=== PATIENT | female | born 1990 | race Caucasian/White ===

== ENCOUNTER 2024-08-13 12:03 | Outpatient (CLI) | payer OTHER, SELFPAY ==
--- NOTE | 2024-08-13 12:15 | CRLHL7_ITS ---
For Patients: As a result of the Century Cures Act, medical imaging exams and procedure reports are released immediately into your electronic medical record. You may view this report before your referring provider. If you have questions, please contact your health care provider. INDICATION: First trimester scan, establish dates. COMPARISON: None. TECHNIQUE: Real-time jimenez-scale imaging of the pelvis was performed. FINDINGS/IMPRESSION: Sonographic imaging demonstrates a single living intrauterine gestation. The embryo demonstrates a regular cardiac rate measuring 161 beats per minute. The embryo`s crown-rump length measurement of 1.9 cm corresponds to a gestational age of 8 weeks 3 days with a sonographic due date of 03/22/2025. There is a normal-appearing yolk sac. There are no gross abnormalities noted within the embryo at this early state of development. The gestational sac has a normal appearance. There is a 3.2 x 0.8 x 1.8 cm left-sided perigestational hemorrhage. The amount of fluid within the sac appears appropriate for gestational age. The cervix is closed. The myometrium appears normal. The ovaries are of normal size. Corpus luteal cyst right ovary. There are no suspicious fluid collections noted in the cul-de-sac. Dictated by Lionel Hernandes MD @ 08/13/2024 1:16:43 PM (Electronically Signed)
== END 2024-08-13 12:04 | disposition home or self-care (01) ==
LOC: US 12:03
PROVIDERS: Visit Provider Midwife
DX: Z34.91 Encounter for supervision of normal pregnancy, unspecified, first trimester (principal); O34.81 Maternal care for other abnormalities of pelvic organs, first trimester; N83.11 Corpus luteum cyst of right ovary; Z3A.08 8 weeks gestation of pregnancy
CPT/HCPCS: 76817

== ENCOUNTER 2024-08-13 13:32 | Outpatient (CLI) | payer OTHER, SELFPAY | END 2024-08-13 13:33 | disposition home or self-care (01) | PROVIDERS: Visit Provider Advanced Practice Midwife | DX: Z34.91 Encounter for supervision of normal pregnancy, unspecified, first trimester (principal); Z3A.08 8 weeks gestation of pregnancy | CPT/HCPCS: 83020; 83021; 85660; 86592; 86703; 86704; 86706; 86762; 86787; 86803; 86850; 86900; 86901; 87086; 87340 ==

== ENCOUNTER 2024-11-10 10:56 | Outpatient (CLI) | payer OTHER, SELFPAY | END 2024-11-10 10:57 | disposition home or self-care (01) | LOC: US 10:57 | PROVIDERS: Visit Provider Advanced Practice Midwife | DX: O09.522 Supervision of elderly multigravida, second trimester (principal); Z3A.20 20 weeks gestation of pregnancy | CPT/HCPCS: 76811 ==

== ENCOUNTER 2024-12-31 13:04 | Outpatient (CLI) | payer OTHER, SELFPAY ==
--- NOTE | 2024-12-31 13:00 | CRLHL7_ITS ---
For Patients: As a result of the Cures Act, medical imaging exams and procedure reports are released immediately into your electronic medical record. You may view this report before your referring provider. If you have questions, please contact your health care provider. OB ULTRASOUND DEONDRE by LMP: 03/25/2025. GA: 28 w, 0 d. Single. Comparison: 11/10/2024, 08/13/2024. INDICATION: Marginal cord insertion. TECHNIQUE: Real time grayscale imaging of the fetus was performed. Transabdominal. CERVIX: Visualized. Measurement: 4.0. POSITIONING: Vertex. AMNIOTIC FLUID: 3.9 cm. SDP (N: greater than 2 x 1 cm) PLACENTA: Technique: Transabdominal. PLACENTA POSITION: Posterior. DOPPLER: heart rate: 147 bpm. BIOMETRY: BPD: 7.3 cm. 29 w, 1 d, 74.7 percent. HC: 26.7 cm. 29 w, 0 d, 52.9 percent. AC: 26.7 cm. 30 w, 5 d, >97 percent. FL: 5.6 cm. 29 w, 4 d, 77.8 percent. FL/AC ratio: 21.05 percent. HC/AC ratio: 1.0. EFW: 1504 g. Weight: 3 lbs, 5 oz. age by this US: 29 w, 4 d. DEONDRE by this US: 03/14/2025. Percentile by DEONDRE: >97 percent. IMPRESSION: 1. Sonographic gestational age 29 weeks 4 days and sonographic due date 03/14/2025. Sonographic age 11 days ahead of clinical age. 2. Estimated weight greater than the 97th percentile. Abdominal circumference greater than the 97th percentile. Lionel Hernandes M.D. Diagnostic Radiologist [email or web address] PORSHA/ye belcher/Dictated by: Lionel Hernandes MD @ 12/31/2024 2:29:00 PM (Electronically Signed)
== END 2024-12-31 13:05 | disposition home or self-care (01) ==
LOC: US 13:04
PROVIDERS: Visit Provider Advanced Practice Midwife
DX: O43.193 Other malformation of placenta, third trimester (principal); Z3A.28 28 weeks gestation of pregnancy
CPT/HCPCS: 76816; 86592

== ENCOUNTER 2025-01-06 07:44 | Outpatient (CLI) | payer OTHER, SELFPAY | END 2025-01-06 07:45 | disposition home or self-care (01) | LOC: NFLDREF 01-13 22:09 | PROVIDERS: Visit Provider Advanced Practice Midwife | DX: R73.09 Other abnormal glucose (principal) | CPT/HCPCS: 82951; 82952 ==

== ENCOUNTER 2025-02-11 12:55 | Outpatient (CLI) | payer OTHER, SELFPAY ==
--- NOTE | 2025-02-11 13:00 | CRLHL7_ITS ---
For Patients: As a result of the Century Cures Act, medical imaging exams and procedure reports are released immediately into your electronic medical record. You may view this report before your referring provider. If you have questions, please contact your health care provider. OB ULTRASOUND DEONDRE by LMP/US: 03/25/2025. GA: 34 w, 0 d. Single. Comparison: Ultrasounds 12/31 and 11/10. INDICATION: Marginal cord insertion. TECHNIQUE: Real time jimenez scale imaging of the fetus was performed. Transabdominal. CERVIX: Not visualized. POSITIONING: Breech. AMNIOTIC FLUID: 4.1 cm. SDP (N: greater than 2 x 1 cm) PLACENTA: Technique: Transabdominal. PLACENTA POSITION: Posterior. DOPPLER: heart rate: 124 bpm. BIOMETRY: BPD: 8.8 cm. 35 w, 3 d, 86th percent. HC: 32.2 cm. 36 w, 2 d, 74th percent. AC: 31.4 cm. 35 w, 2 d, 87th percent. FL: 6.4 cm. 33 w, 1 d, 20th percent. FL/AC ratio: 20.45 percent. HC/AC ratio: 1.02. EFW: 2535 g. Weight: 5 lbs, 9 oz. age by this US: 35 w, 0 d. DEONDRE by this US: 03/18/2025. Percentile by DEONDRE: 70th percent. IMPRESSION: 1. Sonographic gestational age 35 weeks 0 days and sonographic due date 03/18/2025. Sonographic age is 1 week ahead of the clinical age. 2. Estimated weight 78th percentile. Abdominal circumference 87th percentile. Lionel Hernandes M.D. Diagnostic Radiologist [email or web address] PORSHA/davidson DW/Dictated by: Lionel Hernandes MD @ 02/12/2025 9:16:00 PM (Electronically Signed)
--- OUTSIDE RECORDS SUMMARY | 2025-02-12 00:52 | XMS_ITS | Clinical Summary ---
Author Organization [facility] Address [address] [place] [id number] Care Team Providers Care Operations Analyst Name Role Phone Alena Fernandez MD Primary Care Provide r Allergies Active Allergy Reactions Criticality Noted Date Comments Penicillins Rash,Hives High 05/09/2007 Medications sertraline (ZOLOFT) 50 mg tablet Take 1 tablet (50 mg total) by mouth daily. 90 Tablet 3 2 Active ketoconazole 2% shampoo (NIZORAL) 2 % shampoo Apply topically to damp skin, lather, leave on 5 minutes, and rinse 3 (three) times a week. 120 mL 11 10/22/2022 4:30 PM DIRECTOR OF VALUATION 2 Active buPROPion (WELLBUTRIN XL) 150 mg Extended-Release tablet Take 1 tablet (150 mg total) by mouth every morning. 90 Tablet 11/15/2022 1:41 PM CDT 3 Active sertraline (ZOLOFT) 100 mg tablet Take 1 tablet (100 mg total) by mouth daily. 90 Tablet 11/15/2022 1:41 PM CDT 3 Active ondansetron (ZOFRAN) 4 mg tablet Take 1 Tablet (4 mg) by mouth 3 times daily if needed for nausea or vomiting for up to 7 days. 20 Tablet 3 Active loperamide (IMODIUM) 2 mg capsule Take 1 capsule (2 mg total) by mouth 4 (four) times a day as needed for diarrhea. 30 Capsule 3 Active ondansetron (ZOFRAN ODT) 4 mg disintegrating tabletIndications: Nausea Place 1 Tablet (4 mg) on the tongue every 8 hours if needed for Nausea/Vomiti ng. 20 Tablet 3 Active Amphetamine-Dextro amphetamine (ADDERALL) 15 mg tablet TAKE 1 TABLET BY MOUTH ONCE DAILY NEEDED IN THE AFTERNOON 3 Active Adderall XR 15 mg Extended-Release capsule Take 15 mg by mouth once daily. 3 Active ondansetron (ZOFRAN ODT) 4 mg disintegrating tabletIndications: Nausea Place 1 Tablet (4 mg) on the tongue every 8 hours if needed for Nausea/Vomiti ng. 15 Tablet 3 Active Active Problems Problem Noted Date Diagnosed Date Vaginal delivery 04/10/2021 Encounter for supervision of normal , unspecified, unspecified trimester 09/15/2020 Overview (04/09/2021): G 2 P 1, x1 after induction of labor for gestational diabetes uncontrolled DEONDRE: April 28, 2021 by LMP and FTU FOB: Allen Rubella immune, Rh a positive anatomy scan: normal female Nest Packet given on: 12-12 OGTT: 183 Hb at 28 weeks: 13.2 Influenza on: Tdap on: 02/06/21 GBS: COVID Testing: PP contraception plans: Presentation 03/26/21: cephalic on BSUS Issues: 1. Gestational diabetes--diet controlled 2. History of depression anxiety 3. Subchorionic hematoma 4. Size>Dates 03/26/2021. Bedside growth US 91st %ile. Official growth US ordered. Vaginal delivery 10/16/2019 Gestational diabetes mellitus (GDM) 09/03/2019 Encounter for supervision of normal first , unspecified trimester 03/27/2019 Overview (10/16/2019): G 1 P 0, GDM on glyburide /FOB: Allen Rubella immune, Rh A positive anatomy scan: normal female OGTT: failed 3hr GTT Hb: 12.9 GBS: Tdap on: 08-13-2019 Influenza on: 07-05-2019 PP contraception plans: Issues: Gestational DM on glyburide Asthma Cardiac surgery PDA closure, echo in 2012 H/O HSV, valtrex prophylaxis at 36 weeks. Devan Olsen M.D. 09/15/19 Moderate persistent asthma with acute exacerbati on 10/04/2010 Overview (10/16/2019): Overview: Asthma, Unspecified Migraine headache 10/04/2010 Immunizations Immunization Administration Dates Next Due Hepatitis B (Peds) 09/29/2001,06/08/2001, 001 Hepatitis B, Unspecified 09/29/2001,06/08/2001,0 05/11/2001 Human Papilloma Virus Vaccine 02/01/2008, 008,08/06/2007 Influenza Virus, Unspecified 07/05/2019,07/15/20 18,06/14/2011 Influenza, IIV4 05/24/2020,06/02/2014 MMR 05/11/2001 Meningococcal Vaccine (Menactra) 08/06/2007 Meningococcal, Unspecified 08/06/2007 Pneumococcal Poly,23-Valent (Pneumovax) 08/06/2007 Pneumococcal conj 13-Valent (Prevnar 13) 08/06/2007 Td (Age >=7 Years) 11/24/2002 Td, Preservative Free (age >= 7 Years) 3 Tdap 02/06/2021, 9,11/10/2012,11/24 Social History Tobacco Use Types Packs/Day Years Used Date Smoking Tobacco: Former Cigarettes Smokeless Tobacco: Never Tobacco Cessation:Counseling Given: Not Answered Alcohol Use Standard Drinks/Week Comments Not Currently 0 (1 standard drink = 0.6 oz pur e alcohol) PHQ-2 Answer Date Recorded PHQ-2 Score 0 09/08/2019 Social Connections Answer Date Recorded Frequency of Communication with Friends and Fami ly Not on file 08/25/2021 Financial Resource Strain Answer Date R ecorded Difficulty of Paying Living Expenses Not on file 08/25/2021 Difficulty of Paying Living Expenses Not on file 08/25/2021 Utilities Answer Date Recorded Do you have trouble paying f or utilities (for example, heat, electricity, water, phone)? 1 08/02/2023 Comments No Sex and Gender Information Value Date Recorded Sex Assigned at Not on file Legal Sex Female 6:59 AM DIRECTOR OF VALUATION Gender Identity Not on file Sexual Orientation Not on file Obstetrics History Para Term AB IAB SAB Ectopic Multiple Livin g Live Births 2 2 2 0 1 1 Date Outcome GA Total Labor Labor/2nd/3rd Weight Sex Type Anes PTL Tamie A1 A5 Name Clin 2019 Term 38w 1d 1h 00m/0h 10m 3.58 kg (7 lb 14.3 oz) F Vag Epidur al 8 9 FELST EAD,B G TIANNASABRINA mancia Complications:None Delivery Location:[facility]) 2020 Term 37w 2d 10h 46m 10h 26m/0h 17m/0h 03m 3.31 kg (7 lb 4.8 oz) F Vag-S pont Epidur al Livin g 9 9 FELST EAD,B G TIANNA mancia, Taz Santana MD Complications:None Delivery Location:Hospital ( [facility]) Last Filed Vital Signs Vital Sign Reading Time Taken Comments Blood Pressure 139/95 08/14/2023 7:40 PM DIRECTOR OF VALUATION Pulse 112 08/14/2023 7:40 PM DIRECTOR OF VALUATION Temperature 37.2 C (98.9 F) 08/14/2023 7:40 PM DIRECTOR OF VALUATION Respiratory Rate 18 08/14/2023 7:40 PM DIRECTOR OF VALUATION Oxygen Saturation 97% 08/14/2023 7:40 PM DIRECTOR OF VALUATION Inhaled Oxygen Concentration - - Weight 81.6 kg (180 lb) 08/14/2023 7:39 PM DIRECTOR OF VALUATION Height 165.1 cm (5' 5) 08/14/2023 7:39 PM DIRECTOR OF VALUATION Body Mass Index 29.95 08/14/2023 7:39 PM DIRECTOR OF VALUATION Plan of Treatment Health Maintenance Due Date Last Done Comments BMI (ht and wt on same day) for age 18+ 2007 Hepatitis C screening for ag e 18-79 2007 Pap test for age 21-65 2010 Depression screening for age 12+ 09/08/2020 09/08/19 20 COVID-19 vaccine series ( season) 2024 Influenza Vaccine (Season Ended) 2025 05/24/2020, 07/05/2019, 07/15/2018, Additional history exists Tetanus booster 02/06/2031 02/06/2021, 07/26, 11/10/2012, Additional history exists Pneumococcal series for age 6-49 (3 of 3 - PCV20 or PCV21) 2039 08/06/2007, 08/06/2007 Hepatitis B series for 19+ Completed 09/29, 09/29/2001, 06/08/2001, Additional history exists HIV for age 15-65 Completed 09/15/2020 Tdap Completed 02/06/2021, 07/26, 11/10/2012, Additional history exists Procedures Procedure Name Priority Date/Time Associated Diagnosis Comments HIV EXTERNAL Routine 09/15/2020 from Last 3 Months or Most Recently Relevant to Health Maintenance Results * HIV EXTERNAL (09/15/2020) EXTERNAL HIV Negative [facility] Blood BLOOD SPECIMEN / Unknown us Devan Olsen MD LABORATORY Final Result [facility] [address] [place] [address], from Last 3 Months or Most Recently Relevant to Health Maintenance Insurance [address] [place] [id number] [facility] [place] [id number] Advance Directives * Full Code (Latest Code Status on File) Date Activated Date Inactivated Comments 2021 9:06 PM 04/10/2021 8:45 PM Question Answer Comments Code Status Discussion: Discussed * Full Code Date Activated Date Inactivated Comments 03/31/2021 11:49 AM 03/31/2021 7:48 PM Question Answer Comments Code Status Discussion: Discussed * Full Code Date Activated Date Inactivated Comments 10/15/2019 5:35 PM 10/18/2019 3:47 PM Question Answer Comments Code Status Discussion: Discussed Care Teams Operations Analyst Relationship Specialty Start Date End Date Alena Fernandez MD [address] [place] [address] PCP - General Family Practice 09/28/18
== END 2025-02-11 12:56 | disposition home or self-care (01) ==
LOC: US 12:55
PROVIDERS: Visit Provider Advanced Practice Midwife
DX: O43.193 Other malformation of placenta, third trimester (principal); O36.63X0 Maternal care for excessive fetal growth, third trimester, not applicable or unspecified; Z3A.34 34 weeks gestation of pregnancy
CPT/HCPCS: 76816

== ENCOUNTER 2025-02-24 12:54 | Outpatient (CLI) | payer OTHER, SELFPAY ==
--- NOTE | 2025-02-24 13:00 | CRLHL7_ITS ---
For Patients: As a result of the Century Cures Act, medical imaging exams and procedure reports are released immediately into your electronic medical record. You may view this report before your referring provider. If you have questions, please contact your health care provider. INDICATION: Maternal gestational diabetes TECHNIQUE: Ultrasound OB pelvis transabdominal. Real-time jimenez-scale imaging of the fetus was performed with color Doppler and spectral Doppler analysis of the umbilical artery without stress testing. COMPARISON: 02/11/2025 FINDINGS: Sonographic imaging demonstrates a single living intrauterine gestation. Fetus demonstrates a regular cardiac rate of 159 beats per minute. Fetus has a cephalic orientation. The placenta lies fundal. Amniotic fluid volume appears normal with a MVP of 4.4 cm. breathing movements, motion, and tone were all observed. IMPRESSION: Single viable intrauterine with a biophysical profile 04/01. Dictated by Jose L Goode MD @ 02/24/2025 1:34:00 PM (Electronically Signed)
== END 2025-02-24 12:55 | disposition home or self-care (01) ==
LOC: US 12:54
PROVIDERS: Visit Provider Advanced Practice Midwife
DX: O24.410 Gestational diabetes mellitus in pregnancy, diet controlled (principal)
CPT/HCPCS: 76819; 87081; 87653

== ENCOUNTER 2025-02-26 23:07 | Outpatient (CLI) | payer OTHER, MEDICAID, SELFPAY ==
[2025-02-26 23:37] VITALS: BP 119/79; PULSE 82
[2025-02-26 23:38] VITALS: RESP 16; TEMP 36.8
--- NOTE | 2025-02-27 07:19 | PC.OBNST ---
NST Note NST Note Start: 02/26/25 23:15 Freq: ONCE Status: Discharge Protocol: Document 02/27/25 06:30 JIMMIE (Rec: 02/27/25 07:19 JIMMIE No Response) NST Note 3 Para (# of births) 2 EDC 03/25/25 Gestational Age In 36 Weeks & 2 Days Weeks & Days High Risk Factors Diabetes - Gestational Insulin,Advanced Maternal Age Patient Presented Contractions/cramping with Complaint(s) of Reactive Yes Appropriate for Yes Gestational Age ROMAIN Benton, ROMAINC Date 02/27/25 Reactive Yes Appropriate for Yes Gestational Age ROMAIN Dalton, RN Date 02/27/25 OB NST charge Yes Complete NST Note Yes via Write Note The provider's electronic signature indicates the NST is reactive/appropriate for gestational age. *Note to provider: If an addendum is required, open the patient's chart and click on the note under the Nurse/Allied Health tab.
== END 2025-02-27 06:48 | disposition home or self-care (01) ==
LOC: OB OUT 23:08 → OB 23:08
PROVIDERS: Visit Provider Obstetrics & Gynecology
DX: O47.03 False labor before 37 completed weeks of gestation, third trimester (principal); O24.419 Gestational diabetes mellitus in pregnancy, unspecified control; Z3A.36 36 weeks gestation of pregnancy
CPT/HCPCS: 59025; G0463; A9270; J2270

== ENCOUNTER 2025-03-02 10:40 | Outpatient (CLI) | payer OTHER, MEDICAID, SELFPAY ==
--- NOTE | 2025-03-02 10:45 | CRLHL7_ITS ---
For Patients: As a result of the Century Cures Act, medical imaging exams and procedure reports are released immediately into your electronic medical record. You may view this report before your referring provider. If you have questions, please contact your health care provider. OB ULTRASOUND BIOPHYSICAL PROFILE TRANSABDOMINAL DEONDRE by LMP: 03/25/2025. GA: 36 w, 5 d. Single. COMPARISON: 02/24/2025, 02/11/2025, 12/31/2024. INDICATION: GDMA2. TECHNIQUE: Real time jimenez scale imaging of the fetus was performed. Transabdominal imaging performed. CERVIX: Not visualized. POSITIONING: Transverse right. AMNIOTIC FLUID: 6.6 cm SDP (N: greater than 2 x 1 cm) BIOPHYSICAL PROFILE: Gross body movements: 2. tone: 2. Respiratory activity: 2. Amniotic fluid: 2. SDP (N: greater than 2 x 1 cm). Total score: 8. PLACENTA: Technique: Transabdominal. PLACENTA POSITION: Fundal. DOPPLER: heart rate: 139 bpm. IMPRESSION: Normal biophysical profile 04/01. Lionel Hernandes M.D. Diagnostic Radiologist [email or web address] SP/Dictated by: Lionel Hernandes MD @ 03/02/2025 11:55:00 AM (Electronically Signed)
== END 2025-03-02 10:41 | disposition home or self-care (01) ==
LOC: US 10:40
PROVIDERS: Visit Provider Advanced Practice Midwife
DX: O47.03 False labor before 37 completed weeks of gestation, third trimester (principal); Z3A.36 36 weeks gestation of pregnancy; O32.0XX0 Maternal care for unstable lie, not applicable or unspecified
CPT/HCPCS: 76819

== ENCOUNTER 2025-03-02 11:50 | Outpatient (CLI) | payer OTHER, MEDICAID, SELFPAY ==
[2025-03-02 12:16] VITALS: BP 116/81; PULSE 104; PULSE 80; PULSE 84; RESP 16; TEMP 36.7; O2SAT 93; O2SAT 96
--- NOTE | 2025-03-02 14:17 | W.PM.OBO ---
OB Outpatient HPI History of Present Illness Date Seen: 03/02/25 History of Present Illness: 34 year old at 35 weeks, 5 days gestation presents with contractions and fetus found to be in transverse presentation earlier today. She has gone into labor red around 37 weeks for both of her previous pregnancies. She has known GDM A2, and was recently started on NPH insulin 40 units at night. Of note, her fetus was found to be breech in the 3rd trimester, converted to cephalic by 34 weeks, and back to transverse today. Meds Home Medications and Allergies Home Medications ?Medication ?Instructions ?Recorded ?Confirmed ?Type vits no.126-ferrous fum 1 tab PO DAILY 08/13/24 03/02/25 History 28 mg iron-folic acid 800 mcg tablet (Classic ) acetaminophen 500 mg tablet 1,000 mg PO Q6H PRN 10/08/24 03/02/25 History (Tylenol Extra Strength) bupropion HCl 150 mg 24 hr tablet, 150 mg PO QAM #30 tabs 10/08/24 03/02/25 Rx extended release (Wellbutrin XL) sertraline 100 mg tablet 100 mg PO QDAY #90 tabs 11/19/24 03/02/25 Rx Blood Glucose Meter #1 ea 01/10/25 03/02/25 Rx blood sugar diagnostic (Blood #100 ea 01/10/25 03/02/25 Rx Glucose Test strips) lancets (Accu-Chek Softclix #100 ea 01/10/25 03/02/25 Rx Lancets) famotidine 20 mg tablet (Pepcid) 20 mg PO QDAY #30 tabs 02/11/25 03/02/25 Rx valacyclovir 500 mg tablet 500 mg PO BID PRN suppression 02/11/25 03/02/25 Rx therapy #60 tabs alcohol swabs (Alcohol Wipes) 1 pad topical .COMPLEX #100 ea 02/24/25 03/02/25 Rx insulin NPH isoph U-100 human 100 40 unit (0.4 mL) subcut QAM #10 mL 02/24/25 03/02/25 Rx unit/mL subcutaneous suspension (Novolin N NPH U-100 Insulin isophane) insulin syringe,safety needle 1 mL #100 ea 02/24/25 03/02/25 Rx 29 gauge x 1/2 (BD SafetyGlide Insulin Syringe) Allergies Allergy/AdvReac Type Severity Reaction Status Date / Time Penicillins Allergy Mild Rash Verified 03/02/25 11:23 COUNT INCLUDES THE [facility] Medical History Vaping nicotine dependence, tobacco product ?F17.290 - Nicotine dependence, other tobacco product, uncomplicated (ICD-10) History of herpes genitalis ?Z86.19 - Personal history of other infectious and parasitic diseases (ICD-10) Depression ?F32.A - Depression, unspecified (ICD-10) ADHD ?F90.9 - Attention-deficit hyperactivity disorder, unspecified type (ICD-10) Marginal insertion of umbilical cord Patent ductus arteriosus ?Q25.0 - Patent ductus arteriosus (ICD-10) Gestational diabetes ?O24.419 - Gestational diabetes mellitus in , unspecified control (ICD-10) Surgical History History of heart surgery ?Z98.890 - Other specified postprocedural states (ICD-10) Social History What is your current living situation?: I presently have a place to live Problems where you live: no known problems In the past 12 months, utilities in danger of being shut off: no In past 12 months, lack of transportation kept you from medical appts, meetings, work, or getting things needed for daily living: no In the past 12 mos, have been you worried that your food would run out before you had money to buy more?: never true In the past 12 mos, the food you bought just didn't last and you didn't have money to buy more?: never true Smoking Status: Former smoker How often does anyone, including family, friends and others, physically hurt you: never How often does anyone, including family, friends and others, insult or talk down to you: sometimes How often does anyone, including family, friends and others, threaten you with harm: never How often does anyone, including family, friends and others, scream or curse at you: sometimes Health Related Social Needs: Other personal risk factors, not elsewhere classified (Z91.89) History History 3 Elective abortions Para 2 Spontaneous abortions Hx # Term Pregnancies 2 Ectopic pregnancies Hx # Pregnancies Multiple births Number of Living Children 2 Past Pregnancies Del. Date GA/Weeks Outcome Route wt Inf Gender Labor Lgth Anesthesia Location Provider Compli 10/16/19 38 live - full term 7 lb 14 oz Female 4.5 hours epidural [place], [place] gestational diabetes 04/09/21 37 live - full term 7 lb 7 oz Female 1.5 hours epidural [place], [place] gestational diabetes Delivery Date: 04/09/21 Last Updated by: Christine Gonsalves CNM OP, manual rotation OB - H&P: Exam Physical Exam Vital signs: Temp Pulse Resp BP Pulse Ox 98.1 F 104 H 16 116/81 93 03/02/25 12:16 03/02/25 12:16 03/02/25 12:16 03/02/25 12:16 03/02/25 12:16 Narrative: Physical exam: Vitals as noted above. General: No acute distress Psych: Alert and oriented x 3, full affect HEENT: Normocephalic, atraumatic Abdomen: Soft, nontender, gravid Pelvic exam: 2 cm, 50%,-3, posterior, firm , cephalic on exam Bedside ultrasound: Cephalic lie is confirmed tracing: Baseline 140, accelerations present, and 1 variable deceleration on extended monitoring, moderate variability Contractions about every 5 minutes, mild per patient Assessment and Plan Assessment and plan (1) Unstable lie: Status: Acute Plan 35 weeks, 5 days gestation in complicated by GDM A2. Unstable lie. Cephalic at this moment. I have no indication for induction of labor at this time. I recommended that she call us early should contractions strengthen or become more frequent.
--- NOTE | 2025-03-02 14:46 | PC.OBNST ---
NST Note NST Note Start: 03/02/25 12:05 Freq: ONCE Status: Active Protocol: Document 03/02/25 14:44 ALMAYH (Rec: 03/02/25 14:46 CUDDYH [id number]) NST Note 3 Para (# of births) 2 EDC 03/25/25 Gestational Age In 36 Weeks & 5 Days Weeks & Days Patient Presented Contractions/cramping with Complaint(s) of Reactive Yes Appropriate for Yes Gestational Age RN Nikunj Morgan RN Date 03/02/25 Reactive Yes Appropriate for Yes Gestational Age ROMAIN Hastings RN Date 03/02/25 OB NST charge Yes Complete NST Note Yes via Write Note The provider's electronic signature indicates the NST is reactive/appropriate for gestational age. *Note to provider: If an addendum is required, open the patient's chart and click on the note under the Nurse/Allied Health tab.
== END 2025-03-02 15:00 | disposition home or self-care (01) ==
LOC: OB OUT 11:52 → OB 11:52
PROVIDERS: Visit Provider Obstetrics & Gynecology
DX: O47.03 False labor before 37 completed weeks of gestation, third trimester (principal); O24.419 Gestational diabetes mellitus in pregnancy, unspecified control; Z3A.36 36 weeks gestation of pregnancy
CPT/HCPCS: 59025; 76815; G0463

== ENCOUNTER 2025-03-04 17:38 | Outpatient (CLI) | payer OTHER, MEDICAID, SELFPAY ==
[2025-03-04 17:49] VITALS: BP 122/82; PULSE 88; RESP 16; TEMP 36.6
[2025-03-04 18:32] LABS: Appearance Urine Clear (Clear)
[2025-03-04 18:53] LABS: Trichomonas No Trichomonas Seen (None Seen)
--- NOTE | 2025-03-04 20:30 | PC.OBNST ---
NST Note NST Note Start: 03/04/25 17:41 Freq: ONCE Status: Active Protocol: Document 03/04/25 17:41 [facility] (Rec: 03/04/25 20:29 [facility] [id number]) NST Note 3 Para (# of births) 2 EDC 03/25/25 Gestational Age In 37 Weeks & 0 Days Weeks & Days High Risk Factors Diabetes - Gestational Insulin Patient Presented Contractions/cramping with Complaint(s) of Reactive Yes Appropriate for Yes Gestational Age RN Case RN Date 03/04/25 Reactive Yes Appropriate for Yes Gestational Age RN Sal RN Date 03/04/25 OB NST charge Yes Complete NST Note Yes via Write Note The provider's electronic signature indicates the NST is reactive/appropriate for gestational age. *Note to provider: If an addendum is required, open the patient's chart and click on the note under the Nurse/Allied Health tab.
== END 2025-03-04 20:20 | disposition home or self-care (01) ==
LOC: OB OUT 17:40 → OB 17:45
PROVIDERS: Visit Provider Obstetrics & Gynecology
DX: O47.1 False labor at or after 37 completed weeks of gestation (principal); O24.419 Gestational diabetes mellitus in pregnancy, unspecified control; Z3A.37 37 weeks gestation of pregnancy
CPT/HCPCS: 59025; 76815; 81001; 81003; 82962; 87086; 87210; G0463; A9270; J2270

== ENCOUNTER 2025-03-11 13:11 | Outpatient (CLI) | payer OTHER, MEDICAID, SELFPAY ==
--- NOTE | 2025-03-11 13:00 | CRLHL7_ITS ---
For Patients: As a result of the Cures Act, medical imaging exams and procedure reports are released immediately into your electronic medical record. You may view this report before your referring provider. If you have questions, please contact your health care provider. OB ULTRASOUND DEONDRE by LMP: 03/25/2025. GA: 38 w, 0 d. Single. Comparison: 03/02/2025, 02/24/2025, 02/11/2025. INDICATION: GDM. TECHNIQUE: Real time grayscale imaging of the fetus was performed. Transabdominal. CERVIX: Not visualized. POSITIONING: Vertex. AMNIOTIC FLUID: 5.3 cm. SDP (N: greater than 2 x 1 cm) BIOPHYSICAL PROFILE: 2: Gross body movements 2: tone 2: Respiratory activity 2: Amniotic fluid SDP (N: greater than 2 x 1 cm) 8/8: Total score PLACENTA: Technique: Transabdominal. PLACENTA POSITION: Fundal. DOPPLER: heart rate: 157 bpm. IMPRESSION: Normal biophysical profile score 8/8. Lionel Hernandes M.D. Diagnostic Radiologist [email or web address] PORSHA/ye belcher/Dictated by: Lionel Hernandes MD @ 03/11/2025 4:23:00 PM (Electronically Signed)
== END 2025-03-11 13:12 | disposition home or self-care (01) ==
LOC: US 13:12
PROVIDERS: Visit Provider Advanced Practice Midwife
DX: O24.410 Gestational diabetes mellitus in pregnancy, diet controlled (principal); Z3A.38 38 weeks gestation of pregnancy
CPT/HCPCS: 76819

== ENCOUNTER 2025-03-11 15:23 | Inpatient (IN) | payer OTHER, MEDICAID, SELFPAY ==
[2025-03-11 16:02] VITALS: BMI 33.6
[2025-03-11 16:22] VITALS: PULSE 93; O2SAT 96
[2025-03-11 16:23] VITALS: BP 111/74; PULSE 86
[2025-03-11 16:24] VITALS: RESP 18; TEMP 36.6
--- NOTE | 2025-03-11 18:22 | W.PM.LDBA ---
Subjective History of Present Illness Date Seen: 03/11/25 Narrative: Patient is being admitted to Labor and Delivery for cervical ripening / IOL for indication of GDMA2 with suboptimal control. She is a 34 year old H17-0-16 woman at 38 0/7 weeks gestation. Tianna has had several new elevations of postprandial blood sugars in the last few days. She also reports decreased movement. She has been to the Center several times for contractions but has not had labor. Her full history and physical was dictated by Dr. Salgado on 03/02/25. Please see this for details. Specific Issues/Plans Boyfriend, involved.Expecting third girl! Allergy testing referral sent for penicillin allergy. (10/08/24) H&P by Dr. Salgado on 03/02/25 # Breech at 34 weeks Vertex at 35 6/7 weeks #Advanced maternal age? Recommend Genetic Screening Test: ordered 09/10 20-week Level II detailed ultrasound with MFM? # GDM: GDM A2 (medication management) ? Nutrition consult? Consult with provider for Diabetic Education?referral to [facility] for insulin at 34.6 wks ? Twice weekly testing starting at 32 weeks? Growth US every 4 weeks starting at 28 weeks.?: 34 wks 70% ? Recommend delivery:? Well controlled: 39 0/7-39 6/7?Poorly controlled: 37 0/7-38 6/7 weeks?Failed in-hospital attempt at control: 36 0/7-36 6/7? Insulin ordered 02/24/25: NPH 40 units in am # Vaping, nicotine Trying to stop # Hx of genital herpes Recommend suppression with Valtrex at 36 weeks- Rx at 34 wks per pt request # ADHD w/ Depression Will f/u with psychiatrist on med dosages. Reviewed [facility] as a resource for information on risk to chemical exposure. Stopped taking in July 2024: Adderall 30 mg, sertraline 100 mg, and Bupropion XL 300 mg Restarted 10/08: Sertraline 100 mg and Wellbutrin 150 mg; Deferred to Psychiatry for Adderall management # Personal history of Congenital Cardiac Defect, PDA with surgery at 2 months old Normal Echo in 2011 # Hx of Asthma, not on medication; stable # Marginal cord, less than 1 cm Growth US at 28 weeks: EFW >97%, AC >97% Growth US at 34 weeks: ordered Delivery recommendation: Early term delivery not indicated? #Hx ROM at 36 6/7. Delivered at 37 0/7w # Symptomatic umbilical hernia. Desires repair. Plan for referral to general surgery before 6 weeks , with ultimate plan for combined herniorrhaphy and bilateral salpingectomy. # Undesired fertility. Plan for combined herniorrhaphy and bilateral salpingectomy . Ultrasound: [facility] Level II 11/10/2024 [facility]: 1. Cazares at 20 weeks 5 days gestational age by LMP consistent with 8 week US. 2. No anomalies commonly detected by ultrasound were identified in the detailed anatomic survey within the limits of ultrasound. 3. Growth parameters and estimated weight were consistent with gestational age predicted by assigned DEONDRE. 4. The amniotic fluid volume appeared normal. 5. On transabdominal imaging the cervix appeared long and closed. 6. Marginal placental cord insertion, less than 1cm from the placental margin. 02/11: Breech, posterior placenta, Estimated weight 70 percentile. Abdominal circumference 87th percentile. COVID: declined Flu: 08/13/24 TDAP: 01/14/2025 [facility] Hgb: 02/11/25 12.0 GBS negative OB - Problem Based A/P Additional Plan (1) Unstable lie: Status: Acute (2) Gestational diabetes mellitus (GDM): Status: Acute Plan: With suboptimal control over the last few days. Plan Rubin score is 6. Therefore, she qualifies for cervical ripening. Given recent unstable lie, I favor Cytotec for cervical ripening. We will use 20 units of NPH tonight, half of her usual nighttime dose. Begin the usual blood sugar protocol when she is in active labor. GBS negative. Delivery/Labor/Induction Plan Induction method: per misoprostol protocol OB Exam Physical Exam Vital signs: Temp Pulse Resp BP Pulse Ox 97.8 F 86 18 111/74 96 03/11/25 16:24 03/11/25 16:23 03/11/25 16:24 03/11/25 16:23 03/11/25 16:22 Narrative: Physical exam: General: No acute distress Psych: Alert and oriented x3, full affect HEENT: Normocephalic, atraumatic Heart: Regular rate and rhythm, no murmur rub or gallop Lungs: Clear to auscultation bilaterally Abdomen: Soft, nontender, gravid, cephalic lie Cervical exam:2 / 70 / -3 / midposition / moderate consistency tracing: Baseline 135, accelerations present, no decelerations, moderate variability. Contractions occurring roughly every 3-5 minutes
[2025-03-11] MEDS: LACTATED RINGERS 1000 ML 1,000 ML 500 ML IV (19:51)
[2025-03-11 19:59] LABS: Hematocrit 37.6 % (33.0-51.0); Hemoglobin* 12.5 gm/dL (12.0-16.0); Immature Granulocytes Abs Auto 0.05 K/uL (0.00-0.30); Immature Granulocytes Pct Auto 0.5 %; Lymphocytes Absolute Auto 2.40 K/uL (0.90-2.90); Mean Corpuscular HGB Conc 33 gm/dL (32-36); Mean Corpuscular Hemoglobin 29 pg (26-34); Mean Corpuscular Volume 86 fL (80-100); RDW Coefficient of Variation % 14.4 % (11.5-15.5); Red Blood Count 4.37 m/uL (4.00-5.20); White Blood Count* 9.53 K/uL (4.50-11.00)
[2025-03-11 20:05] LABS: Slide Review Reflex No
[2025-03-11 21:11] VITALS: BP 131/81; PULSE 80; PULSE 89; RESP 20; TEMP 36.6; O2SAT 98
[2025-03-11] MEDS: LACTATED RINGERS 1000 ML 1,000 ML 125 ML IV (23:38)
[2025-03-12] VITALS (49 sets, daily range): BP systolic 95–136; BP diastolic 51–85; PULSE 66–104; RESP 11–20; TEMP 36.4–36.8; O2SAT 89–100
[2025-03-12] MEDS: ACETAMINOPHEN 500 MG TABLET 1000 MG PO ×2 (00:34→20:45)
[2025-03-12] MEDS: OXYTOCIN 30 unit/500 ML in NS 30 UNIT/500 ML BAG IVPB (01:16)
[2025-03-12] MEDS: LACTATED RINGERS 1000 ML 1,000 ML 125 ML IV (07:10)
--- NOTE | 2025-03-12 09:57 | P.OBPN_ITS ---
Subjective Time Seen by Provider: 09:15 Date Seen: 03/12/25 Narrative: Tianna is a 34-year-old at 38 week 1 day gestational age ongoing induction of labor in the setting of suboptimally controlled GDM A2 and decreased movement. Her is otherwise complicated by AMA, marginal cord insertion, history of variable presentation, tobacco use disorder, history of genital herpes (on suppression), ADHD, depression, maternal hx of PDA (normal maternal echo), asthma and symptomatic umbilical hernia. Her complete H&P was dictated by Dr. Salgado on 03/02/2025, please see this for details. Patient has received 2 doses of Cytotec contained on Pitocin for induction. On last exam, she was /0 per bedside RN. A present at the bedside, where patient notes her contractions seem to be increasing in intensity. Denies any vaginal bleeding or leaking of fluid. Endorses active movement. She is agreeable to exam with consideration for amniotomy. Objective Exam: Vital signs reviewed and are within normal limits. General: Alert and oriented, no acute distress Psych: Appropriate mood and affect Abdomen: Gravid. Confirm cephalic presentation on ultrasound by Dr. Hernandez yesterday. Pelvic: , verbal consent for AROM was attained after discussion of risk/benefits. AROM performed without difficulty, clear fluid. heart rate: Category 1. Baseline of 135 beats per minute, moderate v ariability, accelerations present, no apparent decelerations. [place]: Contractions Q 3-5 minutes Vital Signs: Last Vital Signs Temp 97.8 F 03/12/25 08:57 Pulse 75 03/12/25 08:58 Resp 18 03/12/25 08:57 BP 110/71 03/12/25 08:58 Pulse Ox 98 03/12/25 01:53 Plan Plan: Tianna is a 34-year-old at 38 week 1 day gestational age ongoing induction of labor in the setting of suboptimally controlled GDM A2 and decreased movement. Her is otherwise complicated by AMA, marginal cord insertion, history of variable presentation, tobacco use disorder, history of genital herpes (on suppression), ADHD, depression, maternal hx of PDA (normal maternal echo), asthma and symptomatic umbilical hernia. Induction progress has included Cytotec x2 then IV Pitocin. By my exam, patient is 5/50/-1, where consent for amniotomy was obtained after discussion of risk/benefit. AROM performed at 0849, uncomplicated and clear fluid. - Recommend continued Pitocin titration her heart rate and toco data - Anticipate next cervical exam of 4 hours, sooner as clinically indicated - Continue blood glucose monitoring and insulin management per protocol - Pain control per patient preference and Anesthesia, planning unmedicated versu s nitrous oxide - Blood type A positive - GBS negative - contraception plan is salpingectomy. Plan to hopefully do this concurrently with umbilical hernia repair with General surgery in the period. Will place general surgery referral at 2 week PP visit.
--- NOTE | 2025-03-12 11:10 | PM.ANBPRC ---
[facility] Medical History Vaping nicotine dependence, tobacco product ?F17.290 - Nicotine dependence, other tobacco product, uncomplicated (ICD-10) History of herpes genitalis ?Z86.19 - Personal history of other infectious and parasitic diseases (ICD-10) Depression ?F32.A - Depression, unspecified (ICD-10) ADHD ?F90.9 - Attention-deficit hyperactivity disorder, unspecified type (ICD-10) Marginal insertion of umbilical cord Patent ductus arteriosus ?Q25.0 - Patent ductus arteriosus (ICD-10) Gestational diabetes ?O24.419 - Gestational diabetes mellitus in , unspecified control (ICD-10) Surgical History History of heart surgery ?Z98.890 - Other specified postprocedural states (ICD-10) Social History What is your current living situation?: I presently have a place to live Problems where you live: no known problems In the past 12 months, utilities in danger of being shut off: no In past 12 months, lack of transportation kept you from medical appts, meetings, work, or getting things needed for daily living: no In the past 12 mos, have been you worried that your food would run out before you had money to buy more?: never true In the past 12 mos, the food you bought just didn't last and you didn't have money to buy more?: never true Smoking Status: Former smoker How often does anyone, including family, friends and others, physically hurt you: never How often does anyone, including family, friends and others, insult or talk down to you: never How often does anyone, including family, friends and others, threaten you with harm: never How often does anyone, including family, friends and others, scream or curse at you: never Meds Home Medications and Allergies Home Medications ?Medication ?Instructions ?Recorded ?Confirmed ?Type vits no.126-ferrous fum 1 tab PO DAILY 08/13/24 03/11/25 History 28 mg iron-folic acid 800 mcg tablet (Classic ) acetaminophen 500 mg tablet 1,000 mg PO Q6H PRN 10/08/24 03/11/25 History (Tylenol Extra Strength) Held on 03/04/25. Instructions: not needed bupropion HCl 150 mg 24 hr tablet, 150 mg PO QAM #30 tabs 10/08/24 03/11/25 Rx extended release (Wellbutrin XL) sertraline 100 mg tablet 100 mg PO QDAY #90 tabs 11/19/24 03/11/25 Rx Blood Glucose Meter #1 ea 01/10/25 03/11/25 Rx blood sugar diagnostic (Blood #100 ea 01/10/25 03/11/25 Rx Glucose Test strips) lancets (Accu-Chek Softclix #100 ea 01/10/25 03/11/25 Rx Lancets) valacyclovir 500 mg tablet 500 mg PO BID PRN suppression 02/11/25 03/11/25 Rx therapy #60 tabs alcohol swabs (Alcohol Wipes) 1 pad topical .COMPLEX #100 ea 02/24/25 03/11/25 Rx insulin NPH isoph U-100 human 100 40 unit (0.4 mL) subcut QAM #10 mL 02/24/25 03/11/25 Rx unit/mL subcutaneous suspension (Novolin N NPH U-100 Insulin isophane) insulin syringe,safety needle 1 mL #100 ea 02/24/25 03/11/25 Rx 29 gauge x 1/2 (BD SafetyGlide Insulin Syringe) metronidazole 500 mg tablet 500 mg PO BID #14 tabs 03/04/25 03/11/25 Rx Allergies Allergy/AdvReac Type Severity Reaction Status Date / Time Penicillins Allergy Mild Rash Verified 03/11/25 14:02 Results Labs Labs: Laboratory Results - last 24 hr 03/11/25 19:45 WBC 9.53 RBC 4.37 Hgb 12.5 Hct 37.6 MCV 86 MCH 29 MCHC 33 RDW Coeff of Monty 14.4 Plt Count 240 Neut % (Auto) 65.0 Lymph % (Auto) 25.2 [place] % (Auto) 8.7 Eos % (Auto) 0.3 Baso % (Auto) 0.3 Neut # (Auto) 6.19 Lymph # (Auto) 2.40 [place] # (Auto) 0.80 Eos # (Auto) 0.03 Baso # (Auto) 0.03 Abs Immat Gran (auto) 0.05 Imm/Tot Granulo (auto) 0.5 Blood Type A Positive Antibody Screen NEGATIVE Vital Signs Vital Signs: Last Vital Signs Temp 98 F 03/12/25 10:05 Pulse 87 03/12/25 11:09 Resp 18 03/12/25 10:05 BP 112/70 03/12/25 11:09 Pulse Ox 100 03/12/25 11:04 Weight: 91.716 kg Height: 165.1 cm Anesthesia Procedures Epidural Insertion Patient Location: OB Start Time: 10:35 Stop Time: 11:10 Start Date: 03/12/25 Stop Date: 03/12/25 Reason for Block: procedure for pain Patient Position: sitting Performed By: Smooth Hyman Preanesthetic Checklist: IV checked, risks and benefits discussed, surgical consent, monitors and equipment checked, pre-op evaluation, timeout performed and anesthesia consent Prep: chlorhexidine gluconate Monitoring: blood pressure monitoring, continuous pulse oximetry and heart rate Approach: midline Vertebral Space: lumbar (1-5) Epidural Technique: IRON air Needle Type: Tuohy needle Injection Technique: continuous catheter Needle gauge: 17 Needle Length (cm): 10 cm Needle Insertion Depth (cm): 7 Catheter Gauge: 19 Catheter Type: multi-orifice Catheter at skin depth (cm): 13 Test Dose Result: negative and lidocaine 1.5% with epinephrine 1 to 200,000
[2025-03-12] MEDS: LIDOCAINE 2% (PF) 5 ML VIAL EPIDURAL (11:12)
[2025-03-12] MEDS: ROPIVACAINE 0.2% 100 ml 100 ML 12 MG EPIDURAL (11:12)
[2025-03-12] MEDS: LACTATED RINGERS 1000 ML 1,000 ML 925 ML IV (11:15)
--- NOTE | 2025-03-12 14:10 | W.PM.VAGDEL1 ---
Procedure Procedure Done: Global Procedure Details: Normal spontaneous vaginal delivery Events: GDMA2 and AMA Intrapartal Events: Labor Induction Delivery augmentation: rupture of membranes and pitocin Delivery monitor: external FHT Route of delivery: Laceration description: None Delivery repair: Vicryl Estimated blood loss (mL): 75 Anesthesia type: Epidural Disposition: floor Complications: None Narrative: Tianna is a 34-year-old at 38 week 1 day GA admitted for induction of labor in the setting of suboptimally controlled GDM A2 and decreased movement. Her is otherwise complicated by AMA, marginal cord insertion, history of variable presentation, tobacco use disorder, history of genital herpes (on suppression), ADHD, depression, maternal hx of PDA (normal maternal echo), asthma and symptomatic umbilical hernia. heart tones on admission were category 1. Her labor was induced with vaginal Cytotec, augmented with Pitocin and AROM. Epidural was utilized for pain management. Status of bag of juan: AROM performed intrapartum, clear fluid. heart tones during active labor were category 1 in 2. Patient was noted to have a prolonged deceleration at 1312 prompting repeat cervical exam. This was found to be unchanged at 7.5/80/-1, where pitocin was reduced from 8mu/min to 4mu/min. heart rate recovered to a baseline of 145 beats per minute with moderate variability. She had recurrent variable decelerations thereafter, where IV fluid bolus was ongoing, Pitocin was turned off and maternal repositioning efforts were ongoing. Recommended placement of an IUPC and FSE, at which time repeat cervical exam was performed and she was found to be complete and +1. She was complete at 1325 and started pushing at 1330. She made excellent descent throughout the second stage of labor, and had a normal spontaneous vaginal delivery at 1334. heart tones during second stage of labor were category 2 for recurrent variable decelerations lasting 30-60 seconds. Baby delivered OA, restituted JEFFERSON and the anterior and posterior shoulders delivered without difficulty. Nuchal cord: absent. The cord was clamped and cut after delayed cord clamping. Active management of the third stage occurred with IV pitocin and gentle cord traction and the placenta delivered spontaneous and intact at 1342. Placenta was examined, sent for pathologic evaluation in the setting of GDMA2. Cord gases sent: no Cord blood sent for infant ABO: no details: - Liveborn female fetus at 1334 - weight pending at this time - APGARs were 8 and 9 at 1 and 5 minutes respectively Perineum and vagina were inspected, and the following lacerations were noted: no perineal laceration, tiny right labial abrasion that was hemostatic. No repair required. Excellent hemostasis and uterine tone were noted. The following counts were correct: sponges, needles, instruments. Mother and infant in stable condition following the . Infant Gender: Female presentation: vertex Placental Delivery Description: Spontaneous Cord Description: 3 Vessels
--- NOTE | 2025-03-12 18:54 | PM.ANPOST ---
Post Anesthesia Note Post Anesthesia Note Patient seen: Inpatient Respiratory Status: adequate Cardiovascular Status: adequate Mental Status: baseline Pain: adequate Temp: baseline Anesthetic awareness: N/A Complications: none Follow care: none
[2025-03-12] MEDS: IBUPROFEN 600 MG TABLET PO (19:25)
[2025-03-13 00:13] VITALS: BP 100/65; PULSE 87; RESP 16; O2SAT 95
[2025-03-13] MEDS: IBUPROFEN 600 MG TABLET PO ×2 (00:59→07:28)
[2025-03-13 03:42] VITALS: BP 103/67; PULSE 62; RESP 18; O2SAT 96
[2025-03-13] MEDS: ACETAMINOPHEN 500 MG TABLET 1000 MG PO ×2 (03:51→13:09)
[2025-03-13 06:21] LABS: Hemoglobin* 11.2 gm/dL (12.0-16.0)
[2025-03-13 06:34] LABS: Glucose* 102 mg/dL (60-115)
[2025-03-13] MEDS: DOCUSATE SODIUM 100 MG CAPSULE PO (07:28)
[2025-03-13 07:30] VITALS: BP 121/82; PULSE 60; RESP 18; TEMP 36.8; O2SAT 98
--- NOTE | 2025-03-13 08:07 | P.DS_ITS ---
DS: Providers Provider Time Seen by Provider: 08:07 Date Seen: 03/13/25 Date of admission: 03/11/25 15:23 Primary care physician: Not a Local Provider Admitting Clinician: Ofelia Hernandez MD Attending Physician on discharge: Ofelia Hernandez MD Exam Narrative: Exam Narrative: General: Alert and oriented, no acute distress Psych: Appropriate mood and affect Abdomen: Soft, nondistended. Slight tenderness to fundal palpation, at 1 below umbilicus and firm. No rebound or guarding. Extremities: Trace lower extremity edema. No calf erythema or tenderness. Const: Vital Signs, click to edit/add: Vital Signs - 24 hr 03/12/25 08:57 03/12/25 08:58 03/12/25 10:05 Temperature 97.8 F 98 F Pulse Rate 75 Pulse Rate [Pulse Oximeter] Respiratory Rate 18 18 Blood Pressure 110/71 Blood Pressure [Le ft Arm] [facility] 03/12/[facility] 10:06 03/12/25 10:53 03/12/25 10:54 Temperature Pulse Rate 78 Pulse Rate [Pulse Oximeter] Respiratory Rate Blood Pressure 112/75 Blood Pressure [Le ft Arm] Pulse Oximetry 89 100 [facility] 03/12/25 10:59 03/12/25 11:01 03/12/25 11:03 Temperature Pulse Rate 77 82 Pulse Rate [Pulse Oximeter] Respiratory Rate Blood Pressure 121/79 117/80 Blood Pressure [Le ft Arm] Pulse Oximetry 100 [facility] 03/12/25 11:04 03/12/25 11:05 03/12/25 11:07 Temperature Pulse Rate 92 82 Pulse Rate [Pulse Oximeter] Respiratory Rate Blood Pressure 115/77 116/77 Blood Pressure [Le ft Arm] Pulse Oximetry 100 [facility] 03/12/25 11:09 03/12/25 11:11 03/12/25 11:13 Temperature Pulse Rate 87 88 88 Pulse Rate [Pulse Oximeter] Respiratory Rate Blood Pressure 112/70 115/76 108/67 Blood Pressure [Le ft Arm] Pulse Oximetry [facility] 03/12/25 11:16 03/12/25 11:19 03/12/25 11:25 Temperature 97.6 F Pulse Rate 90 96 Pulse Rate [Pulse Oximeter] Respiratory Rate 18 Blood Pressure 107/65 100/57 L Blood Pressure [Le ft Arm] Pulse Oximetry Oxygen Delivery Me thod 03/12/25 11:28 03/12/25 11:34 03/12/25 11:54 Temperature Pulse Rate 104 H 85 77 Pulse Rate [Pulse Oximeter] Respiratory Rate Blood Pressure 95/51 L 100/62 102/60 Blood Pressure [Le ft Arm] Pulse Oximetry Oxygen Delivery Me thod 03/12/25 12:10 03/12/25 12:15 03/12/25 12:24 Temperature 98 F Pulse Rate 75 78 Pulse Rate [Pulse Oximeter] Respiratory Rate 16 Blood Pressure 103/63 100/61 Blood Pressure [Le ft Arm] Pulse Oximetry Oxygen Delivery Me thod 03/12/25 12:38 03/12/25 12:53 03/12/25 13:09 Temperature 97.8 F Pulse Rate 82 74 Pulse Rate [Pulse Oximeter] Respiratory Rate 16 Blood Pressure 100/60 107/66 Blood Pressure [Le ft Arm] Pulse Oximetry Oxygen Delivery Nm thod 03/12/25 13:21 03/12/25 13:39 03/12/25 13:44 Temperature Pulse Rate 76 77 80 Pulse Rate [Pulse Oximeter] Respiratory Rate Blood Pressure 95/56 L 110/65 114/66 Blood Pressure [Le ft Arm] Pulse Oximetry Oxygen Delivery Nm thod 03/12/25 13:59 03/12/25 14:14 03/12/25 14:29 Temperature Pulse Rate 87 83 88 Pulse Rate [Pulse Oximeter] Respiratory Rate Blood Pressure 109/63 109/70 112/78 Blood Pressure [Le ft Arm] Pulse Oximetry Oxygen Delivery Nm thod 03/12/25 14:44 03/12/25 14:59 03/12/25 15:14 Temperature Pulse Rate 96 98 81 Pulse Rate [Pulse Oximeter] Respiratory Rate Blood Pressure 118/85 119/85 119/73 Blood Pressure [Le ft Arm] Pulse Oximetry Oxygen Delivery Nm thod 03/12/25 15:22 03/12/25 15:29 03/12/25 19:28 Temperature 98.1 F 98.3 F Pulse Rate 98 Pulse Rate [Pulse Oximeter] 94 Respiratory Rate 16 18 Blood Pressure 108/60 Blood Pressure [Le ft Arm] 119/73 Pulse Oximetry 96 Oxygen Delivery Nm thod Room Air 03/13/25 00:13 03/13/25 03:42 03/13/25 07:30 Temperature Pulse Rate Pulse Rate [Pulse Oximeter] 87 62 60 Respiratory Rate 16 18 18 Blood Pressure Blood Pressure [Le ft Arm] 100/65 103/67 121/82 Pulse Oximetry 95 96 98 Oxygen Delivery Me thod Room Air Room Air Room Air OB - DS: Summary Hospital Course Hospital Course: Tianna is a 34-year-old that was admitted to the Center on 03/11/25 at 38 weeks for induction of labor in the setting of suboptimally controlled GDMA2 and decreased movement. was otherwise complicated by AMA, marginal cord insertion, history of variable presentation, tobacco use disorder, history of genital herpes (on suppression), ADHD, depression, maternal hx of PDA (normal maternal echo), asthma and symptomatic umbilical hernia. She had an uncomplicated vaginal delivery. She delivered a viable female infant. She is breast feeding. the patient has done well. Patient notes her pain is greatest with , where she has uterine cramping. This is improved with ibuprofen and Tylenol. No significant perineal pain. Tolerating p.o. intake without nausea or vomiting. Ambulates without dizziness or lightheadedness. Voiding spontaneously, passing flatus but no bowel movement. Lochia is described as small volume. She was hoping to do her 2 hour GTT this morning, but fasting blood glucose was 107mg/dL. As such, we deferred her 2 hour GTT to be completed at 1 of her routine follow-up visits. Peripartum Data delivery method: Vaginal Laceration description: None [place] Gender: Female Time Spent with Patient Time attestation: Total time spent providing and/or coordinating discharge services: Time spent: Less than 30 minutes Discharge Plan Discharge Disposition: Home, Self-Care Date of Admission: 03/11/25 15:23 Primary Care Provider: Provider,Not a Local Condition: Stable Anticipated Discharge Date/Time: 03/13/25 14:00 Discharge Medications: Continued acetaminophen [Tylenol Extra Strength] 500 mg tablet 1,000 mg PO Q6H PRN bupropion HCl [Wellbutrin XL] 150 mg tablet extended release 24 hr 150 mg PO QAM Qty: 30 1RF valacyclovir 500 mg tablet 500 mg PO BID PRN (Reason: suppression therapy) Qty: 60 0RF Classic 28 mg iron- 800 mcg tablet 1 tab PO DAILY sertraline 100 mg tablet 100 mg PO QDAY Qty: 90 1RF metronidazole 500 mg tablet 500 mg PO BID Qty: 14 0RF (DME) lancets [Accu-Chek Softclix Lancets] Misc See Rx Instructions .Route Qty: 100 2RF Rx Instructions: As directed to take blood glucose four times daily Discontinued (DME) Blood Glucose Meter Misc See Rx Instructions .Route Qty: 1 0RF Rx Instructions: As directed to take blood glucose four times daily (DME) Blood Glucose Test Strip See Rx Instructions .Route Qty: 100 2RF Rx Instructions: As directed to take blood glucose four times daily Novolin N NPH U-100 Insulin 100 unit/mL suspension 40 unit subcut QAM Qty: 10 0RF (DME) BD SafetyGlide Insulin Syringe 1 mL 29 gauge x 1/2 syringe See Rx Instructions .Route Qty: 100 0RF Rx Instructions: As directed alcohol swabs [Alcohol Wipes] Pads, Medicated 1 pad topical .COMPLEX Qty: 100 0RF Rx Instructions: 1 pad topically as needed, before testing or injection; Discharge Orders: Discharge Order (Routine); Ordered 03/13/25 Ordered By: Marlene Jones Additional Instructions: Discharge instructions were reviewed with the patient including signs and symptoms of infection and home going medications Nothing vaginally for 6 weeks: no tampons or intercourse Do not drive while taking narcotic pain medication(s) Off Work or School for 8 weeks Symptoms to report to doctor: * Bleeding that saturates more than one pad per hour * Passing clots larger than the size of a golf ball * Pain not relieved by prescribed medication * Fever above 100.4 degrees Fahrenheit * A foul vaginal odor * Difficulty in emotions, mood, and functions * Thoughts of hurting yourself and/or * Painful, reddened area in your breast * Any drainage, redness, or tenderness in your IV/epidural site * Severe headache that doesn't improve after taking medications * Changes in vision, including temporary loss of vision, blurred vision, and/or light sensitivity * Upper abdominal pain (usually under ribs on the right side) * Decrease in urination or painful, frequent urinating * Chest pain * Shortness of breath * Tenderness or pain with redness and/swelling in the calf(s) of your leg Optional 2-week visit: discuss feeding concerns, review control options and screen for anxiety/depression. 6-week visit for an annual exam with 2 hour glucose tolerance test. consultation services are available to all mothers and babies for the first year after delivery.? To make an appointment, please call [phone]. Activity Level: Activity as Tolerated Discharge Diet: Regular Follow Up Appointments: Provider,Not a Local [Primary Care Provider, Family Practice] Forms: [employer] Info Instructions
[2025-03-13 13:00] VITALS: BP 135/89; PULSE 62; RESP 18; TEMP 36.4; O2SAT 98
== END 2025-03-13 16:30 | disposition home or self-care (01) | DRG 806 ==
PROVIDERS: Obstetrics & Gynecology; Admitting Provider Obstetrics & Gynecology; Visit Provider Obstetrics & Gynecology
DX: O24.424 Gestational diabetes mellitus in childbirth, insulin controlled (principal); O98.32 Other infections with a predominantly sexual mode of transmission complicating childbirth; Z37.0 Single live birth; A60.00 Herpesviral infection of urogenital system, unspecified; O32.0XX0 Maternal care for unstable lie, not applicable or unspecified; O36.8130 Decreased fetal movements, third trimester, not applicable or unspecified; K42.9 Umbilical hernia without obstruction or gangrene; O99.344 Other mental disorders complicating childbirth; F90.9 Attention-deficit hyperactivity disorder, unspecified type; F32.A Depression, unspecified; O99.334 Smoking (tobacco) complicating childbirth; F17.290 Nicotine dependence, other tobacco product, uncomplicated; Z3A.38 38 weeks gestation of pregnancy
CPT/HCPCS: 01967; 36415; 59200; 82947; 85018; 85025; 86592; 86850; 86900; 86901; A9270; J2270; J2795; J7120

== ENCOUNTER 2025-03-31 13:43 | Outpatient (CLI) | payer OTHER, MEDICAID, SELFPAY ==
--- NOTE | 2025-03-31 15:33 | W.PM.LAC.MC ---
Consult Note - Mom Date of Visit Date of visit: 03/31/25 Reason for consultation: Assistance Needed and Infant Weight Concern Visit Code: Visit Patient's Information Phone number: [phone] : 3 Para: 3 Allergies Penicillins Allergy (Mild, Verified 03/31/25 15:06) Rash Mother's Medical History: Medical History (Updated 03/15/25 @ 00:01 by Background Daemon) Unstable lie ?O32.0XX0 - Maternal care for unstable lie, not applicable or unspecified (ICD-10) Vaping nicotine dependence, tobacco product ?F17.290 - Nicotine dependence, other tobacco product, uncomplicated (ICD-10) History of herpes genitalis ?Z86.19 - Personal history of other infectious and parasitic diseases (ICD-10) Depression ?F32.A - Depression, unspecified (ICD-10) ADHD ?F90.9 - Attention-deficit hyperactivity disorder, unspecified type (ICD-10) Marginal insertion of umbilical cord Patent ductus arteriosus ?Q25.0 - Patent ductus arteriosus (ICD-10) Gestational diabetes ?O24.419 - Gestational diabetes mellitus in , unspecified control (ICD-10) Delivery Information Delivery type: Vaginal Gestational Age: 38+1 Gestational Weight For Age: AGA Weight: 3.13 kg Discharge Weight: 2.97 kg Percentage weight loss: 5.2 Baby's Information Baby's Age at Visit: 19 days Baby's Provider or Clinic: [facility] Jaundice: Yes Past Experience Past Experience: Yes Current Frequency of Day Feedings: every 2-3 hrs Frequency of Night Feedings: mostly 2-3 hrs, occas 4 hr stretch Both Breasts: No Suck: strong Latch: wide, deep, comfortable Length of Time: 15-20 min one breast only/feed Goals: as long as possible Pumping Pumping: Yes Quantity Pumped: 1-3 ea breast after ea feeding Supplementing EBM Supplement: Yes (takes 1-2 bottles/day of 3-4 oz ea) Formula Supplement: No Baby Elimination Number of Wet Diapers a Day: ea feedign Number of BM a Day: several/day Breast/Nipple Condition Breast Information: Breasts are symmetrical with rounded lower quadrants, intramammary distance is less than 1.5 inches. No erythema. Nipples are supple, everted prior to feeding. Breast Shape: Round Engorgement: No Maternal Nipple Condition - Left: Common Nipple Maternal Nipple Condition - Right: Common Nipple Sore Nipples: Yes (slight, more from pumping than feeding) Baby Assessment Skin: Yellow (face) Tongue/frenulum: Restricted mid-range (mild; TABBY score of 6) Palate: Narrow and High arch (slight) Lips: Relaxed, Symmetrical and Tight labial frenulum Jaw Alignment: Symmetrical Mucosa: [place], moist Onsite Observation Pre-Feed weight: 3.09 kg Post-Feed weight: 3.15 kg Milk Transferred (mL): 60 (then took 1 oz EBM via bottle and was content) Position: Cross cradle Attachment/latch-on achieved: Easily Suck pattern: Suck burst and normal rest Swallow: Audible, consistent Behavior following feed: Relaxed, sleepy (after 1st side, but woke well to transfer to 2nd breast and then nursed strongly) Pre-Nursing Left Nipple: Within Normal Limits Pre-Nursing Right Nipple: Within Normal Limits Post-Nursing Left Nipple: Within Normal Limits Post-Nursing Right Nipple: Within Normal Limits Assessments/Interventions Assessments/Interventions: Wilder opens mouth wide and latches quite easily; she es get some cheek dimpling even with a wide, deep latch. Mom has no pain with nursing, nipple is not at all misshapen after feeding, and wilder does not have any clicky/smacking sounds with feeding. Wilder latched to mom's LEFT breast, latched easily and stayed nursing for 15 minutes, started to get sleepy after about 12 minutes. Transferred 36 ml of milk Wilder then latched to mom's RIGHT breast, latched equally well; and nursed for another 10 minutes. Transferred 24 ml of milk. Total milk transferred: 60ml; wilder still fussy so took 30 ml EBM in about 7 minutes and was quite content. Wilder needed minimal support to stay latched. Feeding plan below Discussed TABBY results and how lip tie/posterior tongue tie MAY be affecting feedings; also possible that once she has gained more weight and is stronger she will be able to transfer the milk that mom has without needing any intervention. Mom using a size 17mm flange with her Aura Glow pump; nipples measure 18mm bilaterally Recommend flange size of 20-22mm for increased comfort and mil retrieval Education provided: Early feeding cues to maximize timing of latching, Asymmetric latch technique for wide/deep latch to increase milk, Transfer for baby and increase comfort for mom, Supply/demand nature of milk supply, Sore nipple treatment options, Alternative feeding methods (SNS, cup, finger feeding, bottling) (paced bottle feeding) and Pumping for milk management Feeding Plan: Offer both breasts ea feeding for about 15 min ea; can go up to 20 on 2nd side if desired but want to switch to 2nd side before she gets tired out Given milk transfer here and slow weight gain, offer 1 oz after ea feeding, more if she still acts hungry If solely a bottle feeding, offer 3 oz/feeding Mom to continue pumping after feedings to build/maintain supply until check in next week for repeat weighted feed and weight check Follow-Up Suggested follow up: Appointment in 1 week Time Spent Time spent with patient (min): 75 Meds Home Medications and Allergies Home Medications ?Medication ?Instructions ?Recorded ?Confirmed ?Type vits no.126-ferrous fum 1 tab PO DAILY 08/13/24 03/31/25 History 28 mg iron-folic acid 800 mcg tablet (Classic ) acetaminophen 500 mg tablet 1,000 mg PO Q6H PRN 10/08/24 03/31/25 History (Tylenol Extra Strength) bupropion HCl 150 mg 24 hr tablet, 150 mg PO QAM #30 tabs 10/08/24 03/31/25 Rx extended release (Wellbutrin XL) sertraline 100 mg tablet 100 mg PO QDAY #90 tabs 11/19/24 03/31/25 Rx lancets (Accu-Chek Softclix #100 ea 01/10/25 03/31/25 Rx Lancets) docusate sodium 100 mg capsule 100 mg PO QDAY #120 caps 03/31/25 03/31/25 Rx (Colace) Allergies Allergy/AdvReac Type Severity Reaction Status Date / Time Penicillins Allergy Mild Rash Verified 03/31/25 15:06
== END 2025-03-31 13:44 | disposition home or self-care (01) ==
PROVIDERS: Visit Provider Obstetrics & Gynecology
DX: Z39.1 Encounter for care and examination of lactating mother (principal)
CPT/HCPCS: G0463

== ENCOUNTER 2025-04-07 14:38 | Outpatient (CLI) | payer OTHER, MEDICAID, SELFPAY ==
--- NOTE | 2025-04-07 15:46 | W.PM.LAC.MF ---
Follow-Up Note: Mom Date of visit Date of visit: 04/07/25 Reason for consultation: Infant Weight Concern Visit Code: Visit Patient's Information Allergies Penicillins Allergy (Mild, Verified 03/31/25 15:06) Rash Delivery Information Gestational Age: 38+1 Gestational Weight For Age: AGA Weight: 3.13 kg Last Weight: 3.09 kg Baby's Information Baby's name: Ingrid Neal Baby's Age at Visit: 26 days Baby's Provider or Clinic: [facility] Current Frequency of Day Feedings: every 2-3 hrs Frequency of Night Feedings: 6 hr stretch, then 3-4 hr Both Breasts: Yes Suck: strong Latch: wider and deeper per mom Length of Time: 10 min on 1st side, then 10-15 min on 2nd side Pumping Pumping: Yes Quantity Pumped: 2.5-5 oz total/pump Supplementing EBM Supplement: Yes (takes 3-4 oz 1-2x/day via bottle; occas supp after BF if acts hungry) Formula Supplement: No Baby Elimination Number of Wet Diapers a Day: ea fdg Number of BM a Day: 5-6/day, sometimes more Breast/Nipple Assessment Breast/Nipple Assessment: Breasts are symmetrical with rounded lower quadrants, intramammary distance is less than 1.5 inches. No erythema. Nipples are supple, everted prior to feeding. Breast Shape: Round Engorgement: No Maternal Nipple Condition - Left: Common Nipple Maternal Nipple Condition - Right: Common Nipple Sore Nipples: No (getting better) Onsite Observation Pre-feed weight: 3.368 kg (up 278 gms in 7 days; average 39gm/day) Post-Feed weight: 3.47 kg Milk Transferred (mL): 102 Pre-Nursing Left Nipple: Within Normal Limits Pre-Nursing Right Nipple: Within Normal Limits Post-Nursing Left Nipple: Within Normal Limits Post-Nursing Right Nipple: Within Normal Limits Assessments/Interventions Assessments/Interventions: Babe alert and ready for feeding Latched well to both breasts; reminded mom to flatten out side of breast where bottom lip/jaw comes on to help with deep latch. Lots of rhythmic sucking and swallowing noted; toward end of 10 minutes when less swallowing noted-mom utilized breast compression to get more milk to baby with increased swallowing noted. Latched RIGHT breast for 10 minutes Transferred 42 ml Latched to LEFT breast for 15 minutes Transferred 60 ml Total milk transferred 102 ml! Feeding plan: Continue feeding every 2-3 hours during the day per baby's needs No longer than 6 hr stretch at night to help preserve mom's milk supply offer both breasts each feeding; breast compression to keep baby engaged in feeding as needed Education provided: Early feeding cues to maximize timing of latching, Asymmetric latch technique for wide/deep latch to increase milk, Transfer for baby and increase comfort for mom, Supply/demand nature of milk supply, Need for frequent stimulation/milk removal, Alternative feeding methods (SNS, cup, finger feeding, bottling), Pumping for milk management and Milk collection, storage Follow-Up Recommend baby be seen by provider for:: 2 month [facility] Time Spent Time spent with patient (min): 60 Meds Home Medications and Allergies Home Medications ?Medication ?Instructions ?Recorded ?Confirmed ?Type vits no.126-ferrous fum 1 tab PO DAILY 08/13/24 03/31/25 History 28 mg iron-folic acid 800 mcg tablet (Classic ) acetaminophen 500 mg tablet 1,000 mg PO Q6H PRN 10/08/24 03/31/25 History (Tylenol Extra Strength) bupropion HCl 150 mg 24 hr tablet, 150 mg PO QAM #30 tabs 10/08/24 03/31/25 Rx extended release (Wellbutrin XL) sertraline 100 mg tablet 100 mg PO QDAY #90 tabs 11/19/24 03/31/25 Rx lancets (Accu-Chek Softclix #100 ea 01/10/25 03/31/25 Rx Lancets) docusate sodium 100 mg capsule 100 mg PO QDAY #120 caps 03/31/25 03/31/25 Rx (Colace) Allergies Allergy/AdvReac Type Severity Reaction Status Date / Time Penicillins Allergy Mild Rash Verified 03/31/25 15:06
== END 2025-04-07 14:39 | disposition home or self-care (01) ==
LOC: OB LAC 14:38
PROVIDERS: Visit Provider Obstetrics & Gynecology
DX: Z39.1 Encounter for care and examination of lactating mother (principal)
CPT/HCPCS: G0463

== ENCOUNTER 2025-04-22 11:02 | Outpatient (CLI) | payer OTHER, MEDICAID, SELFPAY | END 2025-04-22 11:03 | disposition home or self-care (01) | PROVIDERS: Visit Provider Registered Nurse | DX: O24.410 Gestational diabetes mellitus in pregnancy, diet controlled (principal) | CPT/HCPCS: 82947; 82950 ==